=== PATIENT | male | born 1965 | race Caucasian/White ===

== ENCOUNTER 2016-10-25 15:06 | Emergency (ER) | payer OTHER, SELFPAY ==
[2016-10-25 15:45] VITALS: BP 132/89; PULSE 91; RESP 16; TEMP 98.5; O2SAT 99
--- NOTE | 2016-10-25 16:17 | ED PDOC ---
HPI: General Adult Time Seen by Provider: 10/25/16 15:57 Chief Complaint (Nursing): Back Pain Chief Complaint (Provider): Neck Pain History Per: Patient History/Exam Limitations: no limitations Onset/Duration Of Symptoms: Sudden Onset Current Symptoms Are (Timing): Still Present Pain Scale Rating Of: 9 Additional Complaint(s): Miguel Montano is a 51 y/o male presenting to the ER on 10/25/2016 with complaints of a sudden onset of neck pain. Patient reports pain originated after he fell backwards while attempting to pick something up at work. He states the pain, which he rates at a 9/10, is localized to the middle of his neck with radiation to the sides. Patient notes he has an associated headache. Past Medical History Reviewed: Historical Data, Nursing Documentation, Vital Signs Vital Signs: Last Vital Signs Temp 98.5 F 10/25/16 15:43 Pulse 91 H 10/25/16 15:43 Resp 16 10/25/16 15:43 BP 132/89 10/25/16 15:43 Pulse Ox 99 10/25/16 16:20 - Medical History PMH: No Chronic Diseases - Surgical History Surgical History: No Surg Hx - Family History Family History: States: Unknown Family Hx - Social History Current smoker - smoking cessation education provided: No Alcohol: None Drugs: Denies - Allergies Allergies/Adverse Reactions: Allergies Allergy/AdvReac Type Severity Reaction Status Date / Time No Known Allergies Allergy Verified 10/25/16 15:42 Review of Systems ROS Statement: Except As Marked, All Systems Reviewed And Found Negative Musculoskeletal: Positive for: Neck Pain Neurological: Positive for: Headache. Negative for: Weakness, Numbness, Dizziness Physical Exam - Reviewed Nursing Documentation Reviewed: Yes Vital Signs Reviewed: Yes - Physical Exam Appears: Positive for: Non-toxic, No Acute Distress Head Exam: Positive for: ATRAUMATIC, NORMAL INSPECTION, NORMOCEPHALIC Skin: Positive for: Normal Color. Negative for: Rash Eye Exam: Positive for: Normal appearance, EOMI, PERRL Neck: Positive for: Normal ((+) C-spine point tenderness with full ROM. Patient is neurovasculary intact ) - ECG O2 Sat by Pulse Oximetry: 99 Medical Decision Making Medical Decision Makin:57 Initial Impression- 51 y/o male with neck pain. Initial Plan- * XR Cervical Spine no definitive fracture seen however advised to f. wtih orthopedics and PTx Documented by Sena Vaca, acting as a scribe for Yvonne Hunt PA-C All medical record entries made by the Scribe were at my direction and personally dictated by me. I have reviewed the chart and agree that the record accurately reflects my personal performance of the history, physical exam, medical decision making, and the department course for this patient. I have also personally directed, reviewed, and agree with the discharge instructions and disposition. Disposition - Clinical Impression Clinical Impression: Neck injury - Patient ED Disposition Is Patient to be Admitted: No Counseled Patient/Family Regarding: Studies Performed, Diagnosis, Need For Followup, Rx Given - Disposition Referrals: [facility] [place] [Outside] [facility] [place] [Outside] Disposition: Routine/Home Disposition Time: 16:58 Condition: STABLE Instructions: Cervical Strain (DC), Soft Cervical Collar (ED) Forms: [facility] ED School/Work Excuse Print Language: RUSSIAN
--- NOTE | 2016-10-25 18:04 | RAD ---
PROCEDURE: Cervical Spine Radiographs. HISTORY: Pain. COMPARISON: None. FINDINGS: BONES: The vertebral bodies are maintained in height. Normal alignment is maintained. The atlantoaxial articulation and odontoid process are intact. DISC SPACES: There is disc space narrowing with osteophyte formation at C 4-5 and C6-7, consistent with degenerative disc disease. SOFT TISSUES: Normal. No prevertebral soft tissue swelling. OTHER FINDINGS: None. IMPRESSION: No fracture/ dislocation. Degenerative disc disease at C4-5 and C6-7.
== END 2016-10-25 17:18 | disposition home or self-care (01) ==
LOC: H.ER 15:06
DX: S19.9XXA Unspecified injury of neck, initial encounter (principal); W19.XXXA Unspecified fall, initial encounter; Y99.0 Civilian activity done for income or pay; M50.321 Other cervical disc degeneration at C4-C5 level

== ENCOUNTER 2016-10-30 10:33 | Observation (INO) | payer OTHER ==
[2016-10-30 10:38] VITALS: PULSE 78; O2SAT 98
[2016-10-30] MEDS ORDERED: Sodium Chloride 0.9% 1,000 ML IV ONE (11:09)
--- NOTE | 2016-10-30 11:12 | ED PDOC ---
HPI: Headache Time Seen by Provider: 10/30/16 10:45 Chief Complaint (Nursing): Dizziness/Lightheaded History Per: Patient History/Exam Limitations: no limitations Onset/Duration Of Symptoms: Days (5), Sudden Onset Current Symptoms Are (Timing): Still Present Severity: Moderate Front/Back Head: 1 - dull achy occipital perla worse with movement rads down neck Quality: Dull Preceeding Symptoms: None Associated Symptoms: denies: Photophobia, Blurred Vision, Nausea, Vomiting, Extremity Weakness Additional History Per: Patient Additional Complaint(s): fell and struck head at work now has persistent perla and dizziness seen here and had neg c spine xray but sx worsened and with dizziness. no other neuro sx. Past Medical History Reviewed: Historical Data Vital Signs: Last Vital Signs Temp 97.0 F L 10/30/16 10:38 Pulse 78 10/30/16 10:38 Resp 20 10/30/16 10:38 BP 140/73 10/30/16 10:38 Pulse Ox 98 10/30/16 10:38 - Medical History PMH: No Chronic Diseases - Family History Family History: States: Unknown Family Hx - Living Arrangements Living Arrangements: With Family - Social History Current smoker - smoking cessation education provided: No - Immunization History Hx Tetanus Toxoid Vaccination: No Hx Influenza Vaccination: No Hx Pneumococcal Vaccination: No - Home Medications Home Medications: Ambulatory Orders Medication Instructions Recorded Cyclobenzaprine [Cyclobenzaprine 10 mg PO TID #10 tab 10/25/16 HCl] Ibuprofen [Motrin] 400 mg PO Q6 #30 tab 10/25/16 Non-Formulary 1 ea XX DAILY #1 ea 10/25/16 - Allergies Allergies/Adverse Reactions: Allergies Allergy/AdvReac Type Severity Reaction Status Date / Time No Known Allergies Allergy Verified 10/25/16 15:42 Review of Systems ROS Statement: Except As Marked, All Systems Reviewed And Found Negative Constitutional: Negative for: Fever, Chills Cardiovascular: Negative for: Chest Pain, Palpitations Respiratory: Negative for: Cough, Shortness of Breath Gastrointestinal: Negative for: Nausea, Vomiting, Abdominal Pain Neurological: Negative for: Weakness Physical Exam - Reviewed Nursing Documentation Reviewed: Yes Vital Signs Reviewed: Yes - Physical Exam Appears: Positive for: Well, No Acute Distress Head Exam: Positive for: ATRAUMATIC, NORMAL INSPECTION, NORMOCEPHALIC Skin: Positive for: Normal Color, Warm, Dry Eye Exam: Positive for: Normal appearance, EOMI, PERRL Neck: Positive for: Normal, Painless ROM, Supple, Pain On Movement Of Neck. Negative for: Decreased ROM, Limited ROM, Trachea Midline Cardiovascular/Chest: Positive for: Regular Rate, Rhythm, Chest Non Tender. Negative for: Edema, Gallop, Murmur, Bradycardia, Tachycardia, Irregularly Irregular Respiratory: Positive for: Normal Breath Sounds. Negative for: Decreased Breath Sounds, Accessory Muscle Use, Crackles, Rales, Rhonchi, Stridor, Wheezing Gastrointestinal/Abdominal: Positive for: Normal Exam, Bowel Sounds, Soft. Negative for: Tenderness Back: Positive for: Normal Inspection. Negative for: L CVA Tenderness, R CVA Tenderness Extremity: Positive for: Normal ROM. 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 Negative for: Motor/Sensory Deficits, Aphasia, Facial Droop - Laboratory Results Result Diagrams: 10/30/16 11:30 10/30/16 11:30 - ECG ECG: Positive for: Interpreted By De ECG Rhythm: Positive for: Normal QRS, Normal ST Segment, Sinus Rhythm (79). Negative for: ST/T Changes O2 Sat by Pulse Oximetry: 98 Pulse Ox Interpretation: Normal - Radiology X-Ray: Interpreted by De X-Ray Interpretation: No Acute Disease - Progress ED Course And Treament: ct head nml. PROCEDURE: CT Cervical Spine without contrast HISTORY: Trauma COMPARISON: None available. TECHNIQUE: Axial computed tomography images were obtained of the cervical spine without the use of intravenous contrast. Coronal and sagittal reformatted images were created and reviewed. Radiation dose: Total exam DLP = 495.85 mGy-cm. This CT exam was performed using one or more of the following dose reduction techniques: Automated exposure control, adjustment of the mA and/or kV according to patient size, and/or use of iterative reconstruction technique. FINDINGS: VERTEBRAE: Vertebral bodies are maintained in height. The transverse processes and posterior elements are intact. There is a circumscribed lucent lesion at the left base of the C2 vertebral body, nonspecific. This has a nonaggressive appearance and is not concerning for malignant neoplasm. There are no other lucent lesions identified throughout the cervical spine. Incidentally noted is partial ankylosis of the T1 and T2 vertebral bodies with some patchy demineralization. Nonspecific. The atlantoaxial articulation and odontoid process are intact otherwise. Normal vertebral alignment is maintained. DISCS/SPINAL CANAL/NEURAL FORAMINA: There is narrowing of the C4-5 intervertebral disc space and mild narrowing of the C6-7 intervertebral disc space, consistent with degenerative disc disease at these levels. Osteophytes are seen about the narrowed disc spaces. The remaining intervertebral disc spaces are maintained in height. Discs heights are grossly preserved. PARASPINAL SOFT TISSUES: Unremarkable. OTHER FINDINGS: None. IMPRESSION: No fracture/dislocation. Degenerative disc disease C4-5 and C6-7. The nonspecific circumscribed all 6 mm lucent lesion at the base of the C2 vertebra with a nonaggressive appearance. Incidental finding of partial ankylosis of T1 and T2 vertebral bodies with patchy demineralization. Uncertain significance. Unremarkable CT of the cervical spine. Advise close f/u with pmd. Re-evaluation Time: 12:41 Condition: Improved Medical Decision Making Medical Decision Makin pm pt resting comfortable awaiting scans 2pm pt resting comfortable awaiting scans 4pm cta of chest negative advise close f/u with ct c spine in medical clinic pt given copy of ct c spine report. Disposition - Clinical Impression Clinical Impression: Headache - Patient ED Disposition Is Patient to be Admitted: No Counseled Patient/Family Regarding: Studies Performed, Diagnosis, Need For Followup - Disposition Disposition: Routine/Home Disposition Time: 16:06 Condition: GOOD
[2016-10-30 11:39] LABS: BASO # 0.1 K/uL (0.0-0.2); BASO % 1.3 % (0.0-2.0); EOS # 0.2 K/uL (0.0-0.7); EOS % 3.4 % (0.0-4.0); HEMOGLOBIN 16.1 g/dL (12.0-18.0); LYMPH # 1.1 K/uL (1.0-4.3); LYMPH % 20.3 % (20.0-40.0); MEAN CELL VOLUME 83.2 fl (80.0-94.0); MEAN CORPUSCULAR HEMOGLOBIN 28.4 pg (27.0-31.0); MEAN CORPUSCULAR HGB CONC 34.1 g/dL (33.0-37.0); MEAN PLATELET VOLUME 8.2 fl (7.2-11.7); MONO # 0.3 K/uL (0.0-0.8); MONO % 5.4 % (0.0-10.0); NEUT # 3.9 K/uL (1.8-7.0); NEUT % 69.6 % (50.0-75.0); NRBC % 0.1 % (0.0-0.0); RBC 5.66 Mil/uL (4.40-5.90); RED CELL DISTRIBUTION WIDTH 13.6 % (11.5-14.5); WHITE BLOOD COUNT 5.7 K/uL (4.8-10.8)
[2016-10-30 11:45] LABS: ALB/GLOB RATIO 1.3 (1.0-2.1); ALBUMIN 3.9 g/dL (3.5-5.0); ALT/SGPT 30 U/L (21-72); AST/SGOT 20 U/L (17-59); BLOOD UREA NITROGEN 12 mg/dl (9-20); GFR AFRICAN-AMERICAN > 60; GFR NON-AFRICAN AMERICAN > 60
[2016-10-30 11:54] LABS: INR 1.1 (0.9-1.2); PARTIAL THROMBOPLASTIN TIME 31.7 Seconds (25.6-37.1); PROTHROMBIN TIME 12.8 Seconds (9.8-13.1)
[2016-10-30 12:04] LABS: MAGNESIUM 1.8 MG/DL (1.6-2.3)
--- NOTE | 2016-10-30 12:17 | CT ---
PROCEDURE: CT Cervical Spine without contrast HISTORY: Trauma COMPARISON: None available. TECHNIQUE: Axial computed tomography images were obtained of the cervical spine without the use of intravenous contrast. Coronal and sagittal reformatted images were created and reviewed. Radiation dose: Total exam DLP = 495.85 mGy-cm. This CT exam was performed using one or more of the following dose reduction techniques: Automated exposure control, adjustment of the mA and/or kV according to patient size, and/or use of iterative reconstruction technique. FINDINGS: VERTEBRAE: Vertebral bodies are maintained in height. The transverse processes and posterior elements are intact. There is a circumscribed lucent lesion at the left base of the C2 vertebral body, nonspecific. This has a nonaggressive appearance and is not concerning for malignant neoplasm. There are no other lucent lesions identified throughout the cervical spine. Incidentally noted is partial ankylosis of the T1 and T2 vertebral bodies with some patchy demineralization. Nonspecific. The atlantoaxial articulation and odontoid process are intact otherwise. Normal vertebral alignment is maintained. DISCS/SPINAL CANAL/NEURAL FORAMINA: There is narrowing of the C4-5 intervertebral disc space and mild narrowing of the C6-7 intervertebral disc space, consistent with degenerative disc disease at these levels. Osteophytes are seen about the narrowed disc spaces. The remaining intervertebral disc spaces are maintained in height. Discs heights are grossly preserved. PARASPINAL SOFT TISSUES: Unremarkable. OTHER FINDINGS: None. IMPRESSION: No fracture/dislocation. Degenerative disc disease C4-5 and C6-7. The nonspecific circumscribed all 6 mm lucent lesion at the base of the C2 vertebra with a nonaggressive appearance. Incidental finding of partial ankylosis of T1 and T2 vertebral bodies with patchy demineralization. Uncertain significance. Unremarkable CT of the cervical spine.
[2016-10-30 12:32] LABS: SQUAMOUS EPITHIAL < 1 /hpf (0-5); URINE BACTERIA OCC (<OCC); URINE BILIRUBIN NEGATIVE (NEGATIVE); URINE BLOOD NEGATIVE (NEGATIVE); URINE CLARITY SLIGHTY-CLOUDY (Clear); URINE COLOR YELLOW (YELLOW); URINE GLUCOSE (UA) >=500 mg/dL (Normal); URINE LEUKOCYTE ESTERASE TRACE Leu/uL (Negative); URINE NITRATE NEGATIVE (NEGATIVE); URINE PROTEIN 30 mg/dL (NEGATIVE); URINE UROBILINOGEN 0.2-1.0 mg/dL (0.2-1.0)
--- NOTE | 2016-10-30 12:35 | CT ---
PROCEDURE: CT HEAD WITHOUT CONTRAST. HISTORY: trauma COMPARISON: None available. TECHNIQUE: Axial computed tomography images were obtained through the head/brain without intravenous contrast. Radiation dose: Total exam DLP = 887.48 mGy-cm. This CT exam was performed using one or more of the following dose reduction techniques: Automated exposure control, adjustment of the mA and/or kV according to patient size, and/or use of iterative reconstruction technique. FINDINGS: HEMORRHAGE: No intracranial hemorrhage. BRAIN: No mass effect or edema. No atrophy or chronic microvascular ischemic changes. VENTRICLES: Unremarkable. No hydrocephalus. CALVARIUM: Unremarkable. PARANASAL SINUSES: Unremarkable as visualized. No significant inflammatory changes. MASTOID AIR CELLS: Unremarkable as visualized. No inflammatory changes. OTHER FINDINGS: None. IMPRESSION: Normal CT of the Head. No intracranial hemorrhage.
[2016-10-30] MEDS ORDERED: Sodium Chloride 0.9% 50 ML IV ONE (15:05)
[2016-10-30] MEDS ORDERED: Iodixanol 320 MG/ML 100 ML BOTTLE IV ONE (15:05)
--- NOTE | 2016-10-30 15:22 | RAD ---
HISTORY: dizzy COMPARISON: No prior. TECHNIQUE: Chest PA and lateral FINDINGS: LUNGS: No active pulmonary disease. PLEURA: No significant pleural effusion identified. No pneumothorax apparent. CARDIOVASCULAR: Normal. OSSEOUS STRUCTURES: No significant abnormalities. VISUALIZED UPPER ABDOMEN: Normal. OTHER FINDINGS: None. IMPRESSION: No active disease.
--- NOTE | 2016-10-30 15:59 | CT ---
PROCEDURE: CT Chest with contrast (Pulmonary Angiogram) HISTORY: cp r/o pe COMPARISON: None available. TECHNIQUE: Axial computed tomography images were obtained of the chest in the pulmonary arterial phase of enhancement. Coronal and sagittal reformatted images were created and reviewed. Total exam DLP = 95 cc of Omnipaque 300 mGy-cm. This CT exam was performed using one or more of the following dose reduction techniques: Automated exposure control, adjustment of the mA and/or kV according to patient size, and/or use of iterative reconstruction technique. FINDINGS: PULMONARY ARTERIES: Unremarkable. No pulmonary embolism. AORTA: No acute findings. No thoracic aortic aneurysm. LUNGS: Unremarkable. No nodule, mass or pulmonary consolidation. PLEURAL SPACES: Unremarkable. No effusion or pneuomothorax. HEART: Unremarkable. No cardiomegaly. No significant pericardial effusion. LYMPH NODES: No lymphadenopathy. BONES, CHEST WALL: Unremarkable. No fracture or destructive lesion OTHER FINDINGS: Unremarkable. IMPRESSION: Unremarkable CT pulmonary angiogram. No pulmonary embolus.
--- NOTE | 2016-10-30 16:32 | RAD ---
HISTORY: dizzy COMPARISON: No prior. FINDINGS: LUNGS: No active pulmonary disease. PLEURA: No significant pleural effusion identified, no pneumothorax apparent. CARDIOVASCULAR: Normal. OSSEOUS STRUCTURES: No significant abnormalities. VISUALIZED UPPER ABDOMEN: Normal. OTHER FINDINGS: None. IMPRESSION: No active disease.
[2016-10-30 16:55] VITALS: BP 128/76; RESP 19; TEMP 97.6
--- NOTE | 2016-10-31 10:21 | CARD ---
APPROVED REPORT EKG Measurement Heart [id number] [id number] <Conclusion> Normal sinus rhythm Normal ECG
== END 2016-10-30 16:55 | disposition home or self-care (01) ==
LOC: H.ER 10:33 → H.EROBSV 14:56
PROVIDERS: ADMIT Emergency Medicine; ATTEND Emergency Medicine
DX: R51 Headache (principal); R42 Dizziness and giddiness; M50.321 Other cervical disc degeneration at C4-C5 level; W19.XXXA Unspecified fall, initial encounter